=== PATIENT | female | born 1990 | race African-American/Black ===

== ENCOUNTER 2022-10-21 11:39 | Outpatient (REF) | payer SELFPAY ==
[2022-10-24 13:09] LABS: TS Negative Control Passed; TS Panel A 3; TS Panel B 0; TS Positive Control Passed; TSpotTB Negative (Negative)
== END 2022-10-21 11:40 | disposition home or self-care (01) ==
LOC: HO.LAB 11:39
PROVIDERS: Internal Medicine; Visit Provider Psychiatry & Neurology Neurology
DX: Z02.1 Encounter for pre-employment examination (principal)
CPT/HCPCS: 36415; 86481